=== PATIENT | female | born 1965 | race Hispanic/Latino ===

== ENCOUNTER 2019-06-01 14:15 | Emergency (ER) | payer SELFPAY ==
[2019-06-01] MEDS ORDERED: Albuterol Sulfate 2.5 mg/0.5 ml Neb ONE (14:42)
--- NOTE | 2019-06-01 15:19 | RAD ---
XR Chest Pa Lat STANDARD History: Cough Comparison: Radiograph June Findings: Lungs are clear. No pneumothorax or effusion. Cardiac silhouette and mediastinal contours a re within normal limits. No acute osseous abnormality. Impression: No acute intrathoracic abnormality.
== END 2019-06-01 15:31 | disposition home or self-care (01) ==
LOC: NAV ERS 14:15
DX: B34.9 Viral infection, unspecified (principal); F31.9 Bipolar disorder, unspecified; F41.9 Anxiety disorder, unspecified; I10 Essential (primary) hypertension
CPT/HCPCS: 71046; 94640; J7611

== ENCOUNTER 2022-04-09 19:45 | Emergency (ER) | payer SELFPAY ==
[2022-04-09] MEDS ORDERED: Sulfameth/Trimethoprim DS 800-160mg TAB ONE (20:39)
== END 2022-04-09 20:51 | disposition home or self-care (01) ==
LOC: NAV ERS 19:45
DX: L02.214 Cutaneous abscess of groin (principal)
CPT/HCPCS: 87070; 87077; 87186; 87205; 99282

== ENCOUNTER 2023-05-30 02:23 | Emergency (ER) | payer OTHER, BC ==
[2023-05-30] MEDS ORDERED: Sulfameth/Trimethoprim DS 800-160mg TAB ONE (03:09)
== END 2023-05-30 03:14 | disposition home or self-care (01) ==
LOC: NAV ERS 02:23
DX: L02.411 Cutaneous abscess of right axilla (principal)
CPT/HCPCS: 99282

== ENCOUNTER 2023-08-26 07:30 | Emergency (ER) | payer BC, OTHER ==
[2023-08-26] MEDS ORDERED: Meclizine HCl 25 MG TAB ONE (08:11)
== END 2023-08-26 08:17 | disposition home or self-care (01) ==
LOC: NAV ERS 07:30
DX: H81.13 Benign paroxysmal vertigo, bilateral (principal)
CPT/HCPCS: 99283

== ENCOUNTER 2023-10-31 12:50 | Emergency (ER) | payer OTHER ==
[2023-10-31] MEDS ORDERED: Ondansetron ODT 4 MG TAB ONE (13:23)
[2023-10-31] MEDS ORDERED: Benzonatate 100 MG CAP ONE (13:23)
[2023-10-31] MEDS ORDERED: Ibuprofen 800 MG TAB ONE (13:23)
[2023-10-31 14:08] LABS: Influenza A by NAA Not Detected (NotDetected); Influenza B by NAA Not Detected (NotDetected); SARS-CoV-2 NAA Rapid Test DETECTED (NotDetected)
== END 2023-10-31 14:20 | disposition home or self-care (01) ==
LOC: NAV ERS 12:50
DX: U07.1 COVID-19 (principal); J45.909 Unspecified asthma, uncomplicated; Z79.899 Other long term (current) drug therapy
CPT/HCPCS: 87081; 87430; 99283; Q0162

== ENCOUNTER 2023-11-04 14:13 | Emergency (ER) | payer OTHER ==
[2023-11-04] MEDS ORDERED: Sodium Chloride 0.9% 1,000 ML ONE (15:14)
[2023-11-04] MEDS ORDERED: Meclizine HCl 25 MG TAB ONE (15:14)
[2023-11-04 15:18] LABS: #Eosinphils 0.3 thou/uL (0.0-0.7); #Lymphocytes 2.3 thou/uL (1.20-3.40); #Monocytes 0.5 thou/uL (0.11-0.59); #Neutrophils 2.6 thou/uL (1.40-6.50); %Basophils 0.7 % (0.0-1.0); %Eosinophils 4.4 % (0.0-10.0); %Lymphocytes 40.7 % (21.0-51.0); %Monocytes 8.6 % (0.0-10.0); %Neutrophils 45.7 % (42.0-75.0); Hematocrit 40.3 % (36.0-47.0); Hemoglobin 13.2 g/dL (12.0-16.0); Mean Corpuscular HGB CONC 32.8 g/dL (32.0-36.0); Mean Corpuscular Hemoglobin 29.7 pg (27.0-31.0); Mean Corpuscular Volume 90.6 fl (78.0-98.0); Mean Platelet Volume 7.3 fL (7.4-10.4); Platelet Count 236 10x3/uL (130-400); RBC Distribution Width 11.6 % (11.5-14.5); Red Blood Cell (RBC) Count 4.45 mill/uL (4.20-5.40); White Blood Cell (WBC) Count 5.7 10x3/uL (4.8-10.8)
[2023-11-04 15:35] LABS: ALT (SGPT) 36 U/L (8-55); AST (SGOT) 32 U/L (5-34); Albumin 3.5 g/dL (3.5-5.0); Alkaline Phosphatase 81 U/L (40-110); Anion Gap 13 mmol/L (10-20); BUN (Urea Nitrogen) 14 mg/dL (9.8-20.1); Bilirubin, Total 0.4 mg/dL (0.2-1.2); Calc. Creatinine Clearance 0 mL/min (70-130); Calcium 8.9 mg/dL (7.8-10.44); Carbon Dioxide 25 mmol/L (22-29); Chloride 104 mmol/L (98-107); Estimated GFR 82; Globulin 3.9 g/dL (2.4-3.5); Glucose 97 mg/dL (70-105); Protein, Total 7.4 g/dL (6.0-8.3); Sodium 138 mmol/L (136-145)
[2023-11-04 16:25] LABS: Bilirubin Negative (Negative); Blood, Urine Moderate (Negative); Glucose, Urine (Dipstick) Negative (Negative); Ketone, Urine Negative (Negative); Leukocyte Moderate (Negative); Nitrite Positive (Negative); Protein, Urine (Dipstick) 100 mg/dL (Neg-Trace); Specific Gravity, Urine 1.025 (1.005-1.030); Urobilinogen 0.2 mg/dL (Less than 2)
[2023-11-04 16:26] LABS: Clarity Cloudy (Clear)
[2023-11-04 16:27] LABS: Bacteria/HPF 3+ HPF (None Seen); CAUTI Indications for Culture Fever or rigors; Squamous Epithelial 0-3 HPF (0-3); WBC/HPF Greater than 50 HPF (0-3)
[2023-11-04 16:28] LABS: Urine Culture Reflex Yes Yes
[2023-11-04] MEDS ORDERED: Cephalexin 250 MG CAP ONE (16:34)
== END 2023-11-04 17:08 | disposition home or self-care (01) ==
LOC: NAV ERS 14:13
DX: H81.10 Benign paroxysmal vertigo, unspecified ear (principal); N39.0 Urinary tract infection, site not specified; J45.909 Unspecified asthma, uncomplicated; Z79.899 Other long term (current) drug therapy
CPT/HCPCS: 80053; 81001; 85025; 87077; 87086; 99284; J7030

== ENCOUNTER 2024-01-11 17:32 | Emergency (ER) | payer OTHER ==
[2024-01-11] MEDS ORDERED: Sulfameth/Trimethoprim DS 800-160mg TAB ONE (18:04)
== END 2024-01-11 18:13 | disposition home or self-care (01) ==
LOC: NAV ERS 17:32
DX: S80.861A Insect bite (nonvenomous), right lower leg, initial encounter (principal); J45.909 Unspecified asthma, uncomplicated; Z79.899 Other long term (current) drug therapy; W57.XXXA Bitten or stung by nonvenomous insect and other nonvenomous arthropods, initial encounter
CPT/HCPCS: 99282

== ENCOUNTER 2024-12-14 20:53 | Emergency (ER) | payer OTHER, SELFPAY ==
[2024-12-14] MEDS ORDERED: Naproxen 500 MG TAB ONE (21:57)
== END 2024-12-14 22:15 | disposition home or self-care (01) ==
LOC: NAV ERS 20:53
DX: M72.2 Plantar fascial fibromatosis (principal); R03.0 Elevated blood-pressure reading, without diagnosis of hypertension
CPT/HCPCS: 99283